=== PATIENT | female | born 1975 | race African-American/Black ===

== ENCOUNTER 2020-10-07 08:41 | Emergency (ER) | payer SELFPAY ==
[2020-10-07 08:56] VITALS: BP 123/81; PULSE 80; RESP 16; TEMP 36.7; O2SAT 99
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
== END 2020-10-07 09:51 | disposition home or self-care (01) ==
PROVIDERS: Emergency Provider Nurse Practitioner
DX: S46.812A Strain of other muscles, fascia and tendons at shoulder and upper arm level, left arm, initial encounter (principal); V43.52XA Car driver injured in collision with other type car in traffic accident, initial encounter
CPT/HCPCS: 99203; G0463